=== PATIENT | male | born 1960 | race Caucasian/White ===

== ENCOUNTER 2022-08-21 12:19 | Inpatient (IN) | payer MEDICARE ==
[~2022-08-21] VITALS: Ht 175.3 cm; Wt 86.6 kg
[2022-08-21] MEDS: NICOTINE 21MG/24HR 1 EA TRANSDERMAL TD SCH (09:00)
[2022-08-21 13:03] LABS: HEMATOCRIT 39.7 % (42.0-52.0); HEMOGLOBIN 12.3 g/dl (13.5-17.5); MEAN CORPUSCULAR HEMOGLOBIN 24.9 pg (27.0-33.0); MEAN CORPUSCULAR VOLUME 80.4 fl (80.0-96.0); PLATELET COUNT, AUTOMATED 355 10^3/uL (150-450); RED BLOOD COUNT 4.94 10^6/uL (4.30-6.10); WHITE BLOOD COUNT 6.4 10^3/uL (4.0-10.0)
[2022-08-21 13:27] LABS: AMPHETAMINES LEVEL URINE NEGATIVE (NEGATIVE); BARBITURATES URINE NEGATIVE (NEGATIVE); BENZODIAZEPINES URINE NEGATIVE (NEGATIVE); COCAINE METABOLITE URINE NEGATIVE (NEGATIVE); METHADONE URINE NEGATIVE (NEGATIVE); OPIATES URINE NEGATIVE (NEGATIVE); PHENCYCLIDINE URINE NEGATIVE (NEGATIVE)
[2022-08-21 13:29] LABS: ETHYL ALCOHOL (ETHANOL) 0.006 % (0.000-0.010)
[2022-08-21 13:30] LABS: RSV AMPLIFICATION NEGATIVE (NEGATIVE)
[2022-08-21 13:31] LABS: ACETAMINOPHEN LEVEL < 2.0 UG/ML (10.0-20.0); ALBUMIN 4.7 G/DL (3.2-5.2); ALKALINE PHOSPHATASE 78 U/L (46-116); ALT/SGPT < 9 U/L (7.0-40); AST/SGOT 14 U/L (<34); BILIRUBIN,DIRECT 0.2 MG/DL (<0.4); BILIRUBIN,TOTAL 0.5 MG/DL (0.3-1.2); BLOOD UREA NITROGEN 19 MG/DL (9-23); CARBON DIOXIDE LEVEL 23 MMOL/L (20-31); CHLORIDE LEVEL 104 MMOL/L (98-107); CREATININE FOR GFR 0.64 MG/DL (0.70-1.30); GLOMERULAR FILTRATION RATE > 60.0 (>49); GLUCOSE, FASTING 110 MG/DL (74-106); POTASSIUM SERUM 4.6 MMOL/L (3.5-5.1); SALICYLATE LEVEL < 3.0 MG/DL (<30); SODIUM LEVEL 138 MMOL/L (136-145); TOTAL PROTEIN 7.6 G/DL (5.7-8.2)
[2022-08-21 13:32] LABS: CANNABINOIDS URINE POSITIVE (NEGATIVE)
[2022-08-21 13:33] LABS: THYROID STIMULATING HORMONE 1.456 uIU/ML (0.55-4.78)
[2022-08-21] MEDS ORDERED: HOME MED LIST COMPLETE! XX SCH (16:05)
[2022-08-21] MEDS ORDERED: MOM 30ML SUSPENSION UDC PO PRN (17:55)
[2022-08-21] MEDS ORDERED: MAALOX 30 ML SUSP *UDC PO PRN (17:55)
[2022-08-21] MEDS ORDERED: traZODone 50 MG TAB PO PRN (17:55)
[2022-08-21] MEDS ORDERED: OLANZapine ORAL DISINTEGRATING TAB 5MG PO PRN (17:55)
[2022-08-21] MEDS: PALIPERIDONE 3MG ER TAB (INVEGA) PO SCH (21:00)
[2022-08-22 06:26] VITALS: BP 134/82
[2022-08-22] MEDS: ACETAMINOPHEN TAB 650MG DOSE (2X325MG) PO PRN ×3 (08:26→20:40)
[2022-08-22] MEDS: PALIPERIDONE 3MG ER TAB (INVEGA) PO SCH ×2 (08:27→20:39)
[2022-08-22] MEDS: NICOTINE 21MG/24HR 1 EA TRANSDERMAL TD SCH (08:27)
[2022-08-22 16:26] VITALS: BP 143/79
[2022-08-23] MEDS: ACETAMINOPHEN TAB 650MG DOSE (2X325MG) PO PRN ×3 (06:03→19:42)
[2022-08-23 06:29] VITALS: BP 137/92
[2022-08-23] MEDS: NICOTINE 21MG/24HR 1 EA TRANSDERMAL TD SCH (09:00)
[2022-08-23] MEDS: PALIPERIDONE 3MG ER TAB (INVEGA) PO SCH ×2 (09:00→19:43)
[2022-08-23 16:36] VITALS: BP 126/76
[2022-08-24] MEDS: ACETAMINOPHEN TAB 650MG DOSE (2X325MG) PO PRN ×4 (03:44→22:47)
[2022-08-24 06:54] VITALS: BP 134/63
[2022-08-24] MEDS: PALIPERIDONE 3MG ER TAB (INVEGA) PO SCH ×2 (09:00→21:00)
[2022-08-24] MEDS: NICOTINE 21MG/24HR 1 EA TRANSDERMAL TD SCH (09:00)
[2022-08-24 19:02] VITALS: BP 135/72
[2022-08-25] MEDS: ACETAMINOPHEN TAB 650MG DOSE (2X325MG) PO PRN ×3 (05:03→17:00)
[2022-08-25 06:13] VITALS: BP 119/70
[2022-08-25] MEDS: PALIPERIDONE 3MG ER TAB (INVEGA) PO SCH ×2 (08:23→20:18)
[2022-08-25] MEDS: NICOTINE 21MG/24HR 1 EA TRANSDERMAL TD SCH (08:23)
[2022-08-25] MEDS: NAPROXEN 250 MG TAB PO PRN (21:37)
[2022-08-26 06:16] VITALS: BP 140/64
[2022-08-26] MEDS: NICOTINE 21MG/24HR 1 EA TRANSDERMAL TD SCH (09:00)
[2022-08-26] MEDS: PALIPERIDONE 3MG ER TAB (INVEGA) PO SCH ×2 (09:00→21:00)
[2022-08-26] MEDS: NAPROXEN 250 MG TAB PO PRN ×2 (09:24→22:07)
[2022-08-26 18:12] VITALS: BP 123/59
[2022-08-27 06:31] VITALS: BP 128/67
[2022-08-27] MEDS: NICOTINE 21MG/24HR 1 EA TRANSDERMAL TD SCH (09:00)
[2022-08-27] MEDS: PALIPERIDONE 3MG ER TAB (INVEGA) PO SCH ×2 (09:00→21:00)
[2022-08-27] MEDS: NAPROXEN 250 MG TAB PO PRN ×2 (10:04→22:40)
[2022-08-27 15:10] VITALS: BP 149/76
[2022-08-28 06:24] VITALS: BP 116/61
[2022-08-28] MEDS: PALIPERIDONE 3MG ER TAB (INVEGA) PO SCH ×2 (08:12→20:32)
[2022-08-28] MEDS: NICOTINE 21MG/24HR 1 EA TRANSDERMAL TD SCH (08:12)
[2022-08-28] MEDS: NAPROXEN 250 MG TAB PO PRN ×2 (10:23→22:38)
[2022-08-28 19:52] VITALS: BP 156/75
[2022-08-29 06:42] VITALS: BP 126/67
[2022-08-29] MEDS: NICOTINE 21MG/24HR 1 EA TRANSDERMAL TD SCH (08:36)
[2022-08-29] MEDS: PALIPERIDONE 3MG ER TAB (INVEGA) PO SCH ×2 (08:36→20:03)
[2022-08-29] MEDS: NAPROXEN 250 MG TAB PO PRN ×2 (10:24→23:04)
[2022-08-29 18:26] VITALS: BP 131/66
[2022-08-30 06:55] VITALS: BP 96/59
[2022-08-30] MEDS: NICOTINE 21MG/24HR 1 EA TRANSDERMAL TD SCH (08:09)
[2022-08-30] MEDS: PALIPERIDONE 3MG ER TAB (INVEGA) PO SCH ×2 (08:09→20:15)
[2022-08-30 10:29] VITALS: BP 96/59
[2022-08-30] MEDS: NAPROXEN 250 MG TAB PO PRN ×2 (10:36→22:40)
[2022-08-30 17:59] VITALS: BP 116/61
[2022-08-31 06:46] VITALS: BP 113/58
[2022-08-31] MEDS: NICOTINE 21MG/24HR 1 EA TRANSDERMAL TD SCH (09:00)
[2022-08-31] MEDS: PALIPERIDONE 3MG ER TAB (INVEGA) PO SCH ×2 (09:00→21:00)
[2022-08-31] MEDS: NAPROXEN 250 MG TAB PO PRN ×2 (10:13→22:45)
[2022-08-31 16:17] VITALS: BP 135/79
[2022-09-01 06:27] VITALS: BP 130/65
[2022-09-01] MEDS: ACETAMINOPHEN TAB 650MG DOSE (2X325MG) PO PRN (07:21)
[2022-09-01] MEDS: NICOTINE 21MG/24HR 1 EA TRANSDERMAL TD SCH (07:39)
[2022-09-01] MEDS: PALIPERIDONE 3MG ER TAB (INVEGA) PO SCH (07:39)
== END 2022-09-01 10:48 | disposition home or self-care (01) | DRG 885 ==
LOC: M ED 12:19 → M ED INP 17:52 → M PSY 18:23
PROVIDERS: ADMIT Psychiatry & Neurology Psychiatry; ATTEND Psychiatry & Neurology Psychiatry
DX: F31.9 Bipolar disorder, unspecified (principal); Z91.14 Patient's other noncompliance with medication regimen